=== PATIENT | male | born 1980 | race Caucasian/White ===

== ENCOUNTER 2017-07-23 12:42 | Day surgery (SDC) | payer BC ==
[~2017-07-23] VITALS: Ht 170.2 cm; Wt 88.1 kg
[2017-07-23] VITALS (15 sets, daily range): BP systolic 119–148; BP diastolic 75–103; PULSE 66–86; RESP 11–26; Ht 170.2 cm; Wt 88.1 kg
[~2017-07-23 12:42] MED LIST: CEFAZOLIN 2 GM/50 ML (PMX) 50 ML IVPB SCH; SOD CHLORIDE 0.9% 1,000 ML IV SCH
[2017-07-23] MEDS ORDERED: BUPIVACAINE 0.25% (MPF) 30 ML INJ ONE ×2 (17:37→18:04)
[2017-07-23] MEDS ORDERED: DIPHENHYDRAMINE 50 MG INJ IV PRN (18:00)
[2017-07-23] MEDS ORDERED: OXYCODONE/ACETAMINOPHEN (5/325) TAB PO PRN ×2 (18:00)
[2017-07-23] MEDS ORDERED: ONDANSETRON 4 MG INJ IV PRN (18:00)
[2017-07-23] MEDS ORDERED: HYDROmorphONE (0.2 MG/ML) 10ML SYG IV PRN ×3 (18:00)
[2017-07-23] MEDS ORDERED: MEPERIDINE 25 MG INJ IV PRN (18:00)
[2017-07-23] MEDS ORDERED: FENTAnyl 50 MCG/ML VIAL ONE (18:14)
[2017-07-23] MEDS ORDERED: SUCCINYLCHOLINE CHLORIDE 100 MG/5 ML SYG IV ONE (18:14)
[2017-07-23] MEDS ORDERED: MIDAZOLAM 1 MG/ML 2 ML INJ ONE (18:14)
[2017-07-23] MEDS ORDERED: LIDOCAINE 2% (SDV) 5 ML INJ ONE (18:14)
[2017-07-23] MEDS ORDERED: PROPOFOL 20 ML ONE (18:14)
[2017-07-23] MEDS ORDERED: ONDANSETRON 4 MG INJ ONE (18:35)
[2017-07-23] MEDS ORDERED: DEXAMETHASONE 4 MG/ML 1 ML INJ ONE (18:35)
[2017-07-23] MEDS ORDERED: ROCURONIUM 50 MG INJ ONE (18:35)
[2017-07-23] MEDS ORDERED: FAMOTIDINE 20 MG INJ ONE (18:36)
[2017-07-23] MEDS ORDERED: NEOSTIGMINE 3 MG/3 ML SYRINGE ONE (18:37)
[2017-07-23] MEDS ORDERED: GLYCOPYRROLATE 0.4 MG INJ ONE (18:37)
[2017-07-23] MEDS ORDERED: CEFAZOLIN 1 GM INJ ONE (18:38)
[2017-07-23] MEDS ORDERED: HYDROmorphONE 2 MG/ML SYG ONE (18:50)
[2017-07-23] MEDS ORDERED: KETOROLAC 30 MG INJ ONE (19:00)
--- NOTE | 2017-07-23 19:09 | OPR ---
Date/Time of Note Date/Time of Note DATE: 07/23/17 TIME: 19:05 Operative Report Procedure Date: Jul 23, 2017 Preoperative Diagnosis complex internal and external hemorrhoid Postoperative Diagnosis same Operation Performed 1. internal hemorrhoidal artery ligation of left lateral and right anterior aspect 2. internal and external hemorrhoidectomy of left lateral and right anterior hemorrhoids 3. rigid sigmoidoscopy 4. therapeutic injection of subcutaneous marcaine cpt code 23791 Surgeon: John LEONARD Anesthesia Type: general Estimated Blood Loss: 10 - 50 ml's Specimens right anterior and left lateral internal and external hemorrhoidal complex Grafts/Implants: none Complications: no Indications This is a 37-year-old male with anal pain found to have internal/external complex hemorrhoids. He requires surgical repair. Risks alternatives benefits and personnel were discussed the patient. Patient's best understanding consents to the operation. Procedure Description Patient is taken to the OR and prepped and draped in usual sterile fashion. Surgical timeout was performed. IV antibiotics given. Initial rigid sigmoidoscopy was performed. There is no evidence of any masses or lesions. Prep was fair. Attention is paid to the left lateral aspect. Left lateral internal hemorrhoidal artery was ligated using a [id number] 3-0 Vicryl suture. The external and internal hemorrhoidal component was then excised using a 15 blade and hand-held cautery. There is good hemostasis. Attention was then paid to the right anterior aspect. [id number] 3-0 Vicryl suture is used to ligate the internal hemorrhoidal artery. The external and internal component of the hemorrhoid is excised using a 15 blade and hand-held cautery. There is good hemostasis. The anal canal was rechecked for patency there is no any stenosis. Therapeutic subcutaneous Marcaine is injected throughout the anal mucosa. Dry dressings were applied. John LEONARD Jul 23, 2017 19:09
[2017-07-23] MEDS: FENTAnyl 50 MCG/ML VIAL IV PRN ×3 (19:44→20:31)
== END 2017-07-23 20:50 | disposition home or self-care (01) ==
LOC: SDS 12:42
PROVIDERS: ATTEND Surgery
DX: K64.8 Other hemorrhoids (principal); K64.4 Residual hemorrhoidal skin tags
CPT/HCPCS: 46260; J0690; J1100; J1170; J1885; J2250; J2405; J2710; J3010; J7999